=== PATIENT | female | born 1985 | race Caucasian/White ===

== ENCOUNTER 2017-09-13 16:15 | Emergency (ER) | payer OTHER ==
[~2017-09-13] VITALS: Ht 170.2 cm; Wt 103.6 kg
[2017-09-13 16:25] VITALS: Ht 170.2 cm; Wt 103.6 kg
[2017-09-13 17:24] LABS: CALCIUM 8.5 mg/dL (8.5-10.1); CHLORIDE SERUM 104 mmol/L (98-107); CREATININE SERUM 0.8 mg/dL (0.6-1.0); GFR1 > 60 mL/min; GLUCOSE SERUM 103 mg/dL (74-106); POTASSIUM SERUM 3.9 mmol/L (3.5-5.1); SODIUM SERUM 142 mmol/L (136-145)
[2017-09-13 17:28] LABS: ALBUMIN 3.6 g/dL (3.4-5.0); ALKALINE PHOSPHATASE 108 U/L (46-116); ALT/SGPT 35 U/L (14-59); AMYLASE 66 U/L (25-115); AST/SGOT 21 U/L (15-37); BILIRUBIN TOTAL 0.8 mg/dL (0.20-1.00); LIPASE 167 IU/L (73-393)
[2017-09-13 17:33] LABS: BASOPHIL % 0.3 % (0-2); RED CELL DISTRIBUTION WIDTH 14.4 % (11.5-14.5)
[2017-09-13 17:34] LABS: PLATELET COUNT 466 x10^3mcL (130-400)
[2017-09-13 18:15] VITALS: BP 110/76
== END 2017-09-13 18:19 | disposition home or self-care (01) ==
LOC: ED 16:15
PROVIDERS: Emergency Medicine
DX: R10.13 Epigastric pain (principal); J45.909 Unspecified asthma, uncomplicated
CPT/HCPCS: 36415; J1885

== ENCOUNTER 2019-02-06 17:19 | Emergency (ER) | payer OTHER ==
[~2019-02-06] VITALS: Ht 167.6 cm; Wt 102.5 kg
[2019-02-06 17:45] VITALS: Ht 167.6 cm; Wt 102.5 kg
[2019-02-06 19:54] VITALS: BP 120/80
== END 2019-02-06 19:54 | disposition home or self-care (01) ==
LOC: ED 17:19
DX: R07.89 Other chest pain (principal); S46.911A Strain of unspecified muscle, fascia and tendon at shoulder and upper arm level, right arm, initial encounter; S16.1XXA Strain of muscle, fascia and tendon at neck level, initial encounter; J45.909 Unspecified asthma, uncomplicated; Z98.890 Other specified postprocedural states; Z88.5 Allergy status to narcotic agent; X58.XXXA Exposure to other specified factors, initial encounter; Y93.89 Activity, other specified; Y92.89 Other specified places as the place of occurrence of the external cause; Y99.8 Other external cause status
CPT/HCPCS: J1885

== ENCOUNTER 2019-04-08 17:10 | Emergency (ER) | payer OTHER ==
[~2019-04-08] VITALS: Ht 170.2 cm; Wt 102.5 kg
[2019-04-08 17:31] VITALS: Ht 170.2 cm; Wt 102.5 kg
[2019-04-08 21:25] VITALS: BP 134/80
== END 2019-04-08 21:25 | disposition home or self-care (01) ==
LOC: ED 17:10
DX: S86.911D Strain of unspecified muscle(s) and tendon(s) at lower leg level, right leg, subsequent encounter (principal); J45.909 Unspecified asthma, uncomplicated; Z88.5 Allergy status to narcotic agent; W19.XXXD Unspecified fall, subsequent encounter
CPT/HCPCS: J1885

== ENCOUNTER 2019-04-20 18:48 | Emergency (ER) | payer OTHER ==
[~2019-04-20] VITALS: Ht 170.2 cm; Wt 101.6 kg
[2019-04-20 19:09] VITALS: BP 121/68; Ht 170.2 cm; Wt 101.6 kg
== END 2019-04-20 21:02 | disposition home or self-care (01) ==
LOC: ED 18:48
DX: M25.561 Pain in right knee (principal); R20.2 Paresthesia of skin; J45.909 Unspecified asthma, uncomplicated; Z88.5 Allergy status to narcotic agent

== ENCOUNTER 2019-09-09 22:14 | Emergency (ER) | payer OTHER ==
[~2019-09-09] VITALS: Ht 170.2 cm; Wt 103.9 kg
[2019-09-09 22:26] VITALS: Ht 170.2 cm; Wt 103.9 kg
[2019-09-09 22:59] VITALS: BP 156/84
== END 2019-09-09 23:00 | disposition home or self-care (01) ==
LOC: ED 22:14
DX: M54.41 Lumbago with sciatica, right side (principal); J45.909 Unspecified asthma, uncomplicated; Z88.5 Allergy status to narcotic agent

== ENCOUNTER 2019-09-10 14:42 | Emergency (ER) | payer OTHER ==
[~2019-09-10] VITALS: Ht 170.2 cm; Wt 104.3 kg
[2019-09-10 14:48] VITALS: Ht 170.2 cm; Wt 104.3 kg
[2019-09-10 20:45] VITALS: BP 119/71
== END 2019-09-10 21:11 | disposition home or self-care (01) ==
LOC: ED 14:42
DX: M54.41 Lumbago with sciatica, right side (principal); R20.2 Paresthesia of skin; J45.909 Unspecified asthma, uncomplicated; Z88.5 Allergy status to narcotic agent

== ENCOUNTER 2020-08-03 01:02 | Emergency (ER) | payer OTHER ==
[~2020-08-03] VITALS: Ht 170.2 cm; Wt 102.5 kg
[2020-08-03 01:41] VITALS: Ht 170.2 cm; Wt 102.5 kg
[2020-08-03 04:07] LABS: BASOPHIL % 0.5 % (0.2-1.3); RED CELL DISTRIBUTION WIDTH 13.2 % (12.3-17.7)
[2020-08-03 04:11] LABS: PLATELET COUNT 524 x10^3mcL (179-408)
[2020-08-03 04:22] LABS: CALCIUM 8.9 mg/dL (8.5-10.1); CARBON DIOXIDE 23.8 mmol/L (21-32); CHLORIDE SERUM 102 mmol/L (98-107); CREATININE SERUM 0.8 mg/dL (0.6-1.0); GFR1 > 60 mL/min; GLUCOSE SERUM 203 mg/dL (74-106); POTASSIUM SERUM 3.9 mmol/L (3.5-5.1); SODIUM SERUM 137 mmol/L (136-145)
[2020-08-03 04:26] LABS: ALBUMIN 3.4 g/dL (3.4-5.0); ALKALINE PHOSPHATASE 86 U/L (46-116); ALT/SGPT 39 U/L (14-59); AST/SGOT 23 U/L (15-37); BILIRUBIN TOTAL 0.48 mg/dL (0.20-1.00); LIPASE 103 IU/L (73-393); TOTAL PROTEIN, SERUM 7.5 g/dL (6.4-8.2)
[2020-08-03 06:38] VITALS: BP 157/73
== END 2020-08-03 06:38 | disposition home or self-care (01) ==
LOC: ED 01:02
PROVIDERS: Emergency Medicine
DX: N13.2 Hydronephrosis with renal and ureteral calculous obstruction (principal); J45.909 Unspecified asthma, uncomplicated; Z88.6 Allergy status to analgesic agent
CPT/HCPCS: J1885; J2405; J7030

== ENCOUNTER 2020-08-17 17:01 | Emergency (ER) | payer OTHER ==
[~2020-08-17] VITALS: Ht 170.2 cm; Wt 100.2 kg
[2020-08-17 17:17] VITALS: Ht 170.2 cm; Wt 100.2 kg
[2020-08-17 18:28] LABS: BASOPHIL % 0.7 % (0.2-1.3); RED CELL DISTRIBUTION WIDTH 13.9 % (12.3-17.7)
[2020-08-17 18:31] LABS: PLATELET COUNT 494 x10^3mcL (179-408)
[2020-08-17 18:35] LABS: CALCIUM 8.9 mg/dL (8.5-10.1); CARBON DIOXIDE 24.5 mmol/L (21-32); CHLORIDE SERUM 105 mmol/L (98-107); CREATININE SERUM 0.8 mg/dL (0.6-1.0); GFR1 > 60 mL/min; GLUCOSE SERUM 169 mg/dL (74-106); POTASSIUM SERUM 4.3 mmol/L (3.5-5.1); SODIUM SERUM 138 mmol/L (136-145)
[2020-08-17 18:41] LABS: ALBUMIN 3.5 g/dL (3.4-5.0); ALKALINE PHOSPHATASE 77 U/L (46-116); ALT/SGPT 34 U/L (14-59); AST/SGOT 20 U/L (15-37); BILIRUBIN TOTAL 0.7 mg/dL (0.20-1.00); LIPASE 101 IU/L (73-393); TOTAL PROTEIN, SERUM 7.4 g/dL (6.4-8.2)
[2020-08-17 20:54] VITALS: BP 107/64
== END 2020-08-17 21:15 | disposition home or self-care (01) ==
LOC: ED 17:01
PROVIDERS: Student in an Organized Health Care Education/Training Program
DX: K29.70 Gastritis, unspecified, without bleeding (principal); J45.909 Unspecified asthma, uncomplicated; Z88.5 Allergy status to narcotic agent
CPT/HCPCS: J1885; J2405; J3490

== ENCOUNTER 2020-08-18 16:30 | Emergency (ER) | payer OTHER ==
[~2020-08-18] VITALS: Ht 170.2 cm; Wt 102.1 kg
[2020-08-18 16:38] VITALS: Ht 170.2 cm; Wt 102.1 kg
[2020-08-18 19:39] VITALS: BP 116/64
== END 2020-08-18 19:40 | disposition home or self-care (01) ==
LOC: ED 16:30
DX: K27.9 Peptic ulcer, site unspecified, unspecified as acute or chronic, without hemorrhage or perforation (principal); R10.13 Epigastric pain; J45.909 Unspecified asthma, uncomplicated; Z88.5 Allergy status to narcotic agent
CPT/HCPCS: C9113; J2405; J3490